=== PATIENT | male | born 1945 | race Caucasian/White ===

== ENCOUNTER 2016-10-30 10:36 | Outpatient (CLI) | payer MEDICARE, OTHER ==
--- NOTE | 2016-10-30 12:53 | XRAY Report ---
THREE VIEW LEFT SHOULDER: 10/30/2016 CLINICAL INDICATION: Pain. FINDINGS: AP, oblique, and scapular Y views of the left shoulder demonstrate mild degenerative croft es of the acromioclavicular joint. The glenohumeral joint appears unremarkable. No radiopaque foreign body is seen in the soft tissues. IMPRESSION: MILD DEGENERATIVE CHANGES OF THE ACROMIOCLAVICULAR JOINT. JOB #: [id number] EXT JOB #:[id number]
== END 2016-10-30 10:37 | disposition home or self-care (01) ==
LOC: DI.S 10:36
PROVIDERS: ATTEND Internal Medicine
DX: M19.012 Primary osteoarthritis, left shoulder (principal)

== ENCOUNTER 2018-02-19 07:47 | Outpatient (CLI) | payer MEDICARE, OTHER ==
[2018-02-19] MEDS ORDERED: GADOBUTROL 7.5 MMOL/7.5 ML VIAL ONE (07:55)
[2018-02-19] MEDS ORDERED: GADOBUTROL 7.5 MMOL/7.5 ML VIAL IVP ONE (08:15)
--- NOTE | 2018-02-19 11:13 | Ultrasound Report ---
Reason: HOMONYMOUS BILATERAL FIELD DEFECTS LEFT SIDE, VISU Procedure Date: 02/19/2018 Accession Number: [id number] / [id number] Procedure: US - Carotid Doppler Complete CPT Code: FULL RESULT: EXAM: BILATERAL CAROTID AND VERTEBRAL ARTERY DUPLEX DOPPLER ULTRASOUND: EXAM DATE: 02/19/2018 08:48 AM CLINICAL HISTORY: Homonymous bilateral field defects left side, visualized. COMPARISON: 02/19/2018 9:21 AM. TECHNIQUE: Grayscale imaging, color Doppler, and duplex spectral Doppler were used to evaluate the carotid and vertebral arteries bilaterally. Static images were obtained. FINDINGS: There is intimal thickening throughout both carotid systems with mild atherosclerotic echogenic plaque in both common carotid systems which focally reaches visually up to 50% on the right and is minimal in the left. Shadowing echogenic plaque is seen within the right carotid bulb which precludes adequate subjective evaluation. The left bulb visually contains up to 50% stenosis with atherosclerotic echogenic plaque. Both internal carotid arteries contain 50% or less focal echogenic atherosclerotic plaque. Normal antegrade flow is present in bilateral vertebral arteries. VELOCITIES (cm/sec): VELOCITIES: RIGHT CCA mid: PSV 94 cm/sec CCA dist: PSV 73 cm/sec ICA prox: PSV 66 cm/sec, EDV 16 cm/sec ICA mid: PSV 63 cm/sec, EDV 19 cm/sec ICA dist: PSV 51 cm/sec, EDV 17 cm/sec ECA: PSV 56 cm/sec Vert: PSV 49 cm/sec ICA/CCA: 0.86 LEFT CCA mid: PSV 67 cm/sec CCA dist: PSV 65 cm/sec ICA prox: PSV 73 cm/sec, EDV 20 cm/sec ICA mid: PSV 81 cm/sec, EDV 25 cm/sec ICA dist: PSV 82 cm/sec, EDV 23 cm/sec ECA: PSV 39 cm/sec Vert: PSV 48 cm/sec ICA/CCA: 1.12 ICA diameter stenosis: Right: <50% by velocity and <70% by NASCET criteria. Left: <50% by velocity and <70% by NASCET criteria. IMPRESSION: 1. No hemodynamically significant bilateral carotid artery plaquing. 2. In the right carotid artery there are no elevated carotid artery velocities to suggest hemodynamically significant stenosis. 3. In the left carotid artery there are no elevated carotid artery velocities to suggest hemodynamically significant stenosis. 4. Normal antegrade flow is present in bilateral vertebral arteries. General Recommendations: Stenosis =50% ICA - Follow-up ultrasound 6-12 months Stenosis <50% ICA - High Risk Patient with plaque - Follow-up ultrasound 1-2 years Normal Study but High Risk Patient - Follow-up ultrasound 3-5 years Management recommendations and diagnostic criteria are based on current IAC endorsed standards in Carotid Artery Stenosis: Grayscale and Doppler Ultrasound Diagnosis. Validated velocity measurements with angiographic measurements and velocity criteria are extrapolated from diameter data as defined by the Society of Radiologists in Ultrasound Consensus Conference Radiology 2003; 229;340-346. RADIA
--- NOTE | 2018-02-20 23:40 | MRI Report ---
Reason: HOMONYMOUS BILATERAL FIELD DEFECTS LEFT SIDE, VISU Procedure Date: 02/19/2018 Accession Number: [id number] / [id number] Procedure: MRI - Orbits W/WO CPT Code: FULL RESULT: EXAM: MRI BRAIN AND ORBITS WITH AND WITHOUT CONTRAST COMPARISON: None. CLINICAL HISTORY: Homonymous bilateral field defects left side, visual. TECHNIQUE: Multiplanar multisequence imaging is obtained through the brain and orbits with and without intravenous gadolinium based contrast 7.5 mL of Gadavist. High-resolution imaging was obtained through the orbits. FINDINGS: Diffusion-weighted imaging shows no acute infarct. T2 FLAIR imaging shows no masses. There are patchy areas of white matter T2 prolongation, multifocal, most concordant small vessel angiopathy per color infarcts. Small focus of right occipital parietal encephalomalacia is presumed to reflect prior infarct. High-resolution T2 fat-saturated imaging through the orbits shows no intraorbital masses. No abnormal signal within either optic nerve. Extraocular muscles are normal. No masses or signal abnormality along the course of either optic nerve. The chiasm is normal. Optic tracts are unremarkable. No unexpected findings along the course of either optic radiation. Postcontrast axial T1 fat-saturated imaging shows no abnormal enhancement of either optic nerve. Small enhancing focus, measures approximately 2 mm, in the right orbit, intraconal (1101, 9), is of uncertain etiology, appears to reflect a small vessel, it is mildly prominent. May reflect a small varix. Pituitary fossa, clivus and foramen magnum are unremarkable. Whole brain postcontrast imaging shows no abnormal parenchymal enhancement. No evidence for metastasis. IMPRESSION: No acute infarct or mass identified. 2-3 mm intraconal enhancing focus on the right is of uncertain etiology, may reflect a small varix, repeat imaging in 3-4 months is suggested. 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
== END 2018-02-19 07:48 | disposition home or self-care (01) ==
LOC: DI 07:47
PROVIDERS: ATTEND Ophthalmology
DX: H53.462 Homonymous bilateral field defects, left side (principal); H53.9 Unspecified visual disturbance; G93.9 Disorder of brain, unspecified
CPT/HCPCS: 70543; 93880; A9585

== ENCOUNTER 2020-07-03 08:38 | Outpatient (CLI) | payer MEDICARE, OTHER ==
--- NOTE | 2020-07-03 15:15 | XRAY Report ---
PROCEDURE: Thoracic Spine 2 View INDICATIONS: LOW BACK PS TECHNIQUE: 3 views of the thoracic spine were acquired. COMPARISON: None. FINDINGS: Bones: No acute fractures or dislocations. No suspicious bony lesions. 12 pairs of ribs are noted, and appear intact where visualized. Multilevel spondylitic changes of the thoracic spine most prono unced in the mid thoracic spine with associated increased thoracic kyphosis. Degenerative endplate ch anges and small endplate osteophytes are noted throughout the thoracic spine. Mild diffuse osteopenia . Soft tissues: No paravertebral stripe thickening. IMPRESSION: Thoracic spine without acute radiographic abnormalities. Multilevel thoracic spondylosis most severe in the mid thoracic spine with associated increased thora cic kyphosis. Diffuse osteopenia. Reviewed by: Denilson Ramirez MD on 07/03/2020 2:14 PM [facility] Approved by: Denilson Ramirez MD on 07/03/2020 2:14 PM [facility] Station ID: [id number]
--- NOTE | 2020-07-03 15:21 | XRAY Report ---
PROCEDURE: Lumbar Spine 2 View INDICATIONS: LOW BACK PX TECHNIQUE: 3 views of the lumbar spine were acquired. COMPARISON: None. FINDINGS: Bones: 5 oic-hie-buebejr vertebrae are present. There is normal AP bony alignment. No acute verteb ral body compression fractures. No suspicious bony lesions. Moderate multilevel lumbar spondylosis m ost pronounced from L3-4 through L5-S1. Findings are most severe at L4-5 and L5-S1 where there is dis c space loss, degenerative endplate changes and prominent endplate osteophyte formation. There is als o prominent mid and lower lumbar facet arthropathy. Soft tissues: Overlying bowel gas pattern is normal. No suspicious soft tissue calcifications. Den se vascular calcifications of the abdominal aorta are noted. IMPRESSION: Lumbar spine without acute fracture or dislocation. Moderate multilevel lumbar spondylosis most sever e at L4-5 and L5-S1 with associated moderate facet arthropathy. Reviewed by: Denilson Ramirez MD on 07/03/2020 2:19 PM [facility] Approved by: Denilson Ramirez MD on 07/03/2020 2:19 PM [facility] Station ID: [id number]
== END 2020-07-03 08:39 | disposition home or self-care (01) ==
LOC: DI.S 08:38
PROVIDERS: ATTEND Nurse Practitioner Family
DX: M47.816 Spondylosis without myelopathy or radiculopathy, lumbar region (principal); M47.814 Spondylosis without myelopathy or radiculopathy, thoracic region; M40.294 Other kyphosis, thoracic region; M85.88 Other specified disorders of bone density and structure, other site

== ENCOUNTER 2021-05-25 06:38 | Outpatient (CLI) | payer MEDICARE, OTHER ==
[2021-05-25] MEDS ORDERED: IOVERSOL 320 100 ML VIAL IVP ONE ×2 (06:58→07:45)
--- NOTE | 2021-05-25 10:51 | CT Report ---
PROCEDURE: ABDOMEN/PELVIS W/WO INDICATIONS: HEMATURIA CONTRAST: IV CONTRAST: Optiray 320 ml: 140 PO CONTRAST: *NO PO CONTRAST TECHNIQUE: Noncontrast 5 mm thick sections acquired from the diaphragms to the symphysis. 5 mm coronal and sagi ttal reformats were then performed. After the administration of oral and intravenous contrast, 5 mm thick sections acquired from the diaphragms to the symphysis. 5 mm thick coronal and sagittal reform ats were acquired. For radiation dose reduction, the following was used: automated exposure control , adjustment of mA and/or kV according to patient size. COMPARISON: None. FINDINGS: Image quality: Excellent. Lung bases: There is mild dependent atelectasis and scarring in the lung bases. Heart size is normal. Urinary system: There are 2 small nonobstructing stones in the right kidney, with the larger stone m easuring up to 0.3 cm. In the left kidney, there is a punctate nonobstructing stone in the inferior p ole. No hydronephrosis or perinephric stranding. No perinephric fat stranding. There is symmetric bi lateral renal enhancement. The opacified renal collecting systems demonstrate lobulated prominent con tours of a few papilla with possible early cleft formation, primarily within the left kidney. 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 Opacified portions of both ureters demonstrate norm al caliber. Bladder wall thickness is normal. No calcified bladder stones. Other solid organs: Liver and spleen are normal in size and enhancement. Gallbladder appears within normal limits without calcified gallstones. Biliary system is non dilated. Pancreas enhances normal ly. No adrenal nodules. Peritoneum and bowel: Bowel loops demonstrate normal wall thickness and caliber. No free fluid or a ir. Nodes and vessels: No retroperitoneal or mesenteric adenopathy by size criteria. Aorta and inferior vena cava are normal in size. Abdominal wall: No ventral hernias. Pelvis: No pathologic free pelvic fluid. No inguinal hernias or adenopathy. Bones: No suspicious bony lesions. No vertebral body compression fractures. IMPRESSION: 1. Bilateral nephrolithiasis without evidence of obstructive uropathy. 2. No discrete renal mass. 3. Opacified renal collecting systems demonstrate soft tissue fullness of a few the patella with sugg estion of possible early cleft formation, primarily within the left kidney. 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 Reviewed by: Angel Fagan MD on 05/25/2021 9:50 AM [facility] Approved by: Angel Fagan MD on 05/25/2021 9:50 AM [facility] Station ID: [id number]
== END 2021-05-25 06:39 | disposition home or self-care (01) ==
LOC: DI 06:38
PROVIDERS: ATTEND Physician Assistant
DX: R31.9 Hematuria, unspecified (principal); N20.0 Calculus of kidney; R93.422 Abnormal radiologic findings on diagnostic imaging of left kidney; R93.421 Abnormal radiologic findings on diagnostic imaging of right kidney
CPT/HCPCS: 74178; Q9967

== ENCOUNTER 2021-06-25 07:55 | Outpatient (CLI) | payer MEDICARE, OTHER ==
--- NOTE | 2021-06-25 09:18 | DEXA Report ---
PROCEDURE: Dexa Spine and/or Hip INDICATIONS: OSTEOPENIA TECHNIQUE: Dual energy x-ray absorptiometry (DXA) was performed on a [employer] System. Regions measur ed are the AP Spine, femoral neck, and if needed forearm. COMPARISON: None. FINDINGS: Lumbar Spine: Bone Mineral Density 1.305 g/cm/cm,T score 0.5, normal bone density Left Hip: Bone Mineral Density 0.780 g/cm/cm,T score -2.2, osteopenia Left Femoral Neck: Bone Mineral Density 0.744 g/cm/cm, T score -2.5, osteoporosis (T score greater or equal to -1.0: NORMAL) (T score from -1.1 to -2.4: OSTEOPENIA) (T score less than or equal to -2.5 to: OSTEOPOROSIS) Impression: OSTEOPOROSIS. Patient is at high risk for fracture. Patients with diagnosis of osteoporosis or osteopenia should have regular bone mineral density assess ment. For those eligible for Medicare, routine testing is allowed once every 2 years. Testing frequ ency can be increased for patients who have rapidly progressing disease or for those who are receivin g medical therapy to restore bone mass. Reviewed by: Denilson Ramirez MD on 06/25/2021 9:17 AM PST Approved by: Denilson Ramirez MD on 06/25/2021 9:17 AM PST Station ID: [id number]
== END 2021-06-25 07:56 | disposition home or self-care (01) ==
LOC: DI 07:55
PROVIDERS: ATTEND Physician Assistant
DX: M81.0 Age-related osteoporosis without current pathological fracture (principal)

== ENCOUNTER 2021-06-25 07:56 | Outpatient (CLI) | payer MEDICARE, OTHER ==
--- NOTE | 2021-06-25 12:56 | XRAY Report ---
PROCEDURE: Shoulder 3 View RT INDICATIONS: RIGHT SHOULDER JOINT PAIN TECHNIQUE: 3 views of the shoulder were acquired. COMPARISON: None. FINDINGS: Bones: No fractures or dislocations. No suspicious bony lesions. Visualized ribs appear intact. Soft tissues: No suspicious soft tissue calcifications. IMPRESSION: No acute fracture. No osseous lesion. If symptoms and/or clinical suspicion for patholog y continue, further assessment with repeat plain films, or advanced imaging (e.g., CT, MRI, or bone s can) is recommended for further assessment. Reviewed by: Bernardo Perez MD on 06/25/2021 11:34 AM [facility] Approved by: Bernardo Perez MD on 06/25/2021 11:34 AM [facility] Station ID: [id number]
== END 2021-06-25 07:57 | disposition home or self-care (01) ==
LOC: DI 07:56
PROVIDERS: ATTEND Physician Assistant
DX: M25.511 Pain in right shoulder (principal); M81.0 Age-related osteoporosis without current pathological fracture

== ENCOUNTER 2021-06-26 15:05 | Outpatient (CLI) | payer MEDICARE, OTHER ==
[2021-06-26 20:14] LABS: BASOPHILS # (AUTO) 0.1 10^3/uL (0.0-0.1); BASOPHILS % (AUTO) 0.9 %; EOSINOPHILS # (AUTO) 0.5 10^3/uL (0.0-0.7); EOSINOPHILS % (AUTO) 6.5 %; HCT - HEMATOCRIT 38.2 % (42.0-52.0); HGB - HEMOGLOBIN 13.3 g/dL (14.0-18.0); LYMPHOCYTES # (AUTO) 2.8 10^3/uL (1.5-3.5); LYMPHOCYTES % (AUTO) 36.3 %; MEAN CORPUSCULAR HEMOGLOBIN 33.2 pg (27.0-31.0); MEAN CORPUSCULAR HGB CONC 34.8 g/dL (32.0-36.0); MEAN CORPUSCULAR VOLUME 95.3 fL (80.0-94.0); MEAN PLATELET VOLUME 10.4 fL (7.4-11.4); MONOCYTES # (AUTO) 0.8 10^3/uL (0.0-1.0); NEUTROPHILS # (AUTO) 3.5 10^3/uL (1.5-6.6); NEUTROPHILS % (AUTO) 45.2 %; PLT - PLATELET COUNT 274 10^3/uL (130-450); RED BLOOD COUNT 4.01 10^6/uL (4.70-6.10); RED CELL DISTRIBUTION WIDTH 13.1 % (12.0-15.0); WHITE BLOOD COUNT 7.6 x10^3/uL (4.8-10.8)
[2021-06-26 20:32] LABS: ALBUMIN 3.9 g/dL (3.2-5.5); CALCIUM 9.1 mg/dL (8.5-10.3); CREATININE 0.9 mg/dL (0.6-1.2); POTASSIUM 4.4 mmol/L (3.5-5.0); URIC ACID 6.2 mg/dL (2.6-7.2)
[2021-06-28 11:57] LABS: HEPATITIS C ANTIBODY NON-REACTIVE (NON-REACTIVE)
[2021-06-28 13:31] LABS: HIV AG/AB 4TH GEN NON-REACTIVE (NON-REACTIVE)
[2021-06-29 09:42] LABS: NIL 0.03 IU/mL
[2021-06-29 12:11] LABS: COMPLEMENT COMPONENT C3C 84 mg/dL (82-185); COMPLEMENT COMPONENT C4C 24 mg/dL (15-53)
[2021-06-30 00:11] LABS: ANA SCREEN POSITIVE (NEGATIVE)
[2021-07-02 13:08] LABS: KAPPA/LAMBDA LC FREE RATIO 1.37 (0.26-1.65)
[2021-07-02 22:07] LABS: ANCA SCREEN NEGATIVE (NEGATIVE)
[2021-07-03 00:53] LABS: ANGIOTENSIN-1-CONVERTING ENZYM 19 U/L (9-67)
== END 2021-06-26 15:06 | disposition home or self-care (01) ==
LOC: LAB.S 15:05
PROVIDERS: ATTEND Internal Medicine Nephrology
DX: R31.9 Hematuria, unspecified (principal); N17.2 Acute kidney failure with medullary necrosis; N18.2 Chronic kidney disease, stage 2 (mild)
CPT/HCPCS: 36415; 80069; 82164; 83520; 83883; 83970; 84155; 84165; 84550; 85025; 86021; 86038; 86160; 86334; 86480; 86803; G0475; 81599; 87389

== ENCOUNTER 2021-07-18 07:51 | Outpatient (CLI) | payer MEDICARE, OTHER ==
--- NOTE | 2021-07-18 16:44 | MRI Report ---
PROCEDURE: Shoulder RT W/O INDICATIONS: RIGHT SHOULDER PAIN TECHNIQUE: Noncontrast oblique coronal T2 fast spin echo with fat saturation, oblique sagittal T1 spin echo and T2 fast spin echo with fat saturation, axial T1 spin echo and T2 fast spin echo with fat saturation t hrough the shoulder. COMPARISON: None. FINDINGS: Image quality: Excellent. Rotator cuff: Tendinosis and low to moderate grade articular and bursal surface partial-thickness tea r involving distal supraspinatus at its insertion on humeral head is seen extending to musculotendino us junction. Full-thickness perforation involving anterior fibers of distal supraspinatus at its inse rtion on humeral head is noted with up to 8 mm medial retraction of torn tendon fibers and fluid-fill ed gap measures 8 mm in AP dimension. Distal infraspinatus and subscapularis tendinosis is seen. No s ignificant rotator cuff muscle atrophy on sagittal images. Bones and bursae: No bone marrow contusions or fractures. Moderate acromioclavicular joint and gleno humeral joint osteoarthritic changes are noted. Large amount of subacromial subdeltoid bursal fluid i s seen, no gross loose bodies. Capsule and soft tissues: There is subtle signal abnormality and contour irregularity involving super ior anterior labrum at 12 to 1:00 position. The long head of the biceps tendinosis and low to moderat e grade intrasubstance partial thickness tear is seen. The rotator interval appears normal, without f ibrosis. The coracohumeral ligament is normal in thickness. IMPRESSION: 1. Tendinosis and low to moderate grade articular and bursal surface partial-thickness tear involving distal supraspinatus extending to musculotendinous junction with full-thickness perforation involvin g anterior fibers of distal supraspinatus at its insertion on humeral head and up to 8 mm medial retr action of torn tendon fibers. Distal infraspinatus and subscapularis tendinosis. No muscle atrophy. 2. Large subacromial subdeltoid bursal fluid. No gross loose bodies. Moderate acromioclavicular joint joint osteoarthritis. No fracture or dislocation. 3. Suggestion of subtle superior anterior labral tear at 12 to 1:00 position. 4. Tendinosis and low to moderate grade intrasubstance partial thickness tear involving proximal intr a-articular portion of long head of biceps. Reviewed by: Roberto Soliman MD on 07/18/2021 4:43 PM PST Approved by: Roberto Soliman MD on 07/18/2021 4:43 PM PST Station ID: [id number]
== END 2021-07-18 07:52 | disposition home or self-care (01) ==
LOC: DI 07:51
PROVIDERS: ATTEND Physician Assistant
DX: S46.021A Laceration of muscle(s) and tendon(s) of the rotator cuff of right shoulder, initial encounter (principal); S46.121A Laceration of muscle, fascia and tendon of long head of biceps, right arm, initial encounter; M19.011 Primary osteoarthritis, right shoulder; M75.51 Bursitis of right shoulder

== ENCOUNTER 2021-12-24 08:26 | Outpatient (CLI) | payer MEDICARE, OTHER ==
[2021-12-24 08:41] LABS: BASOPHILS % (AUTO) 0.6 %; EOSINOPHILS % (AUTO) 0.6 %; LYMPHOCYTES % (AUTO) 61.7 %; MEAN CORPUSCULAR HEMOGLOBIN 32.8 pg (27.0-31.0); MEAN CORPUSCULAR HGB CONC 35.3 g/dL (32.0-36.0); MEAN CORPUSCULAR VOLUME 92.9 fL (80.0-94.0); MEAN PLATELET VOLUME 8.7 fL (7.4-11.4); MONOCYTES % (AUTO) 0.8 %; NEUTROPHILS % (AUTO) 36.3 %; PLT - PLATELET COUNT 74 10^3/uL (130-450); RED BLOOD COUNT 3.66 10^6/uL (4.70-6.10); RED CELL DISTRIBUTION WIDTH 12.7 % (12.0-15.0); WHITE BLOOD COUNT 3.6 x10^3/uL (4.8-10.8)
[2021-12-24 08:45] LABS: SLIDE REVIEW? Indicated
[2021-12-24 08:46] LABS: ABNORMAL LYMPHS % (MANUAL) 0 %; BAND NEUTROPHILS % (MANUAL) 0 %
[2021-12-24 08:58] LABS: ALBUMIN 3.8 g/dL (3.2-5.5); ALBUMIN/GLOBULIN RATIO 1.5 (1.0-2.2); BILIRUBIN,TOTAL 0.9 mg/dL (0.2-1.0); CALCIUM 8.9 mg/dL (8.5-10.3); CREATININE 0.7 mg/dL (0.6-1.2); POTASSIUM 4.3 mmol/L (3.5-5.0); TOTAL PROTEIN 6.4 g/dL (6.7-8.2)
[2021-12-24 09:12] LABS: LYMPHOCYTES # (MANUAL) 2.3 10^3/uL (1.5-3.5); LYMPHOCYTES % (MANUAL) 36 %; NEUTROPHILS # (MANUAL) 1.3 10^3/uL (1.5-6.6); REACTIVE LYMPHS % (MANUAL) 28 %
[2021-12-24 09:13] LABS: DIFFERENTIAL COMMENT MANUAL DIFFERENTIAL
== END 2021-12-24 08:27 | disposition home or self-care (01) ==
LOC: LAB 08:26
PROVIDERS: ATTEND Internal Medicine
DX: C67.9 Malignant neoplasm of bladder, unspecified (principal)
CPT/HCPCS: 36415; 80053; 85025

== ENCOUNTER 2022-01-14 08:03 | Outpatient (CLI) | payer MEDICARE, OTHER ==
[2022-01-14 08:27] LABS: BASOPHILS % (AUTO) 0.5 %; EOSINOPHILS % (AUTO) 0.2 %; HCT - HEMATOCRIT 32.6 % (42.0-52.0); HGB - HEMOGLOBIN 11.1 g/dL (14.0-18.0); LYMPHOCYTES # (AUTO) 2.2 10^3/uL (1.5-3.5); MEAN CORPUSCULAR HEMOGLOBIN 32.3 pg (27.0-31.0); MEAN CORPUSCULAR VOLUME 94.8 fL (80.0-94.0); MEAN PLATELET VOLUME 8.8 fL (7.4-11.4); MONOCYTES # (AUTO) 1.1 10^3/uL (0.0-1.0); MONOCYTES % (AUTO) 17.9 %; NEUTROPHILS # (AUTO) 2.7 10^3/uL (1.5-6.6); NEUTROPHILS % (AUTO) 44.1 %; PLT - PLATELET COUNT 192 10^3/uL (130-450); RED BLOOD COUNT 3.44 10^6/uL (4.70-6.10); RED CELL DISTRIBUTION WIDTH 14.6 % (12.0-15.0)
[2022-01-14 08:36] LABS: ALBUMIN 3.7 g/dL (3.2-5.5); ALBUMIN/GLOBULIN RATIO 1.4 (1.0-2.2); BILIRUBIN,TOTAL 0.6 mg/dL (0.2-1.0); CALCIUM 9.1 mg/dL (8.5-10.3); CREATININE 0.8 mg/dL (0.6-1.2); POTASSIUM 4.5 mmol/L (3.5-5.0); TOTAL PROTEIN 6.3 g/dL (6.7-8.2)
== END 2022-01-14 08:04 | disposition home or self-care (01) ==
LOC: LAB 08:03
PROVIDERS: ATTEND Internal Medicine
DX: C67.9 Malignant neoplasm of bladder, unspecified (principal)
CPT/HCPCS: 36415; 80053; 85025

== ENCOUNTER 2022-01-21 07:57 | Outpatient (CLI) | payer MEDICARE, OTHER ==
[2022-01-21 08:13] LABS: BASOPHILS % (AUTO) 0.1 %; EOSINOPHILS % (AUTO) 0.1 %; HCT - HEMATOCRIT 31.8 % (42.0-52.0); HGB - HEMOGLOBIN 11.1 g/dL (14.0-18.0); LYMPHOCYTES % (AUTO) 7.9 %; MEAN CORPUSCULAR HGB CONC 34.9 g/dL (32.0-36.0); MEAN CORPUSCULAR VOLUME 94.6 fL (80.0-94.0); MEAN PLATELET VOLUME 8.3 fL (7.4-11.4); MONOCYTES % (AUTO) 9.4 %; NEUTROPHILS % (AUTO) 77.5 %; PLT - PLATELET COUNT 191 10^3/uL (130-450); RED BLOOD COUNT 3.36 10^6/uL (4.70-6.10); RED CELL DISTRIBUTION WIDTH 14.6 % (12.0-15.0)
[2022-01-21 08:20] LABS: ALBUMIN 3.7 g/dL (3.2-5.5); ALBUMIN/GLOBULIN RATIO 1.3 (1.0-2.2); BILIRUBIN,TOTAL 0.7 mg/dL (0.2-1.0); CALCIUM 9.3 mg/dL (8.5-10.3); CREATININE 0.9 mg/dL (0.6-1.2); POTASSIUM 4.7 mmol/L (3.5-5.0); TOTAL PROTEIN 6.5 g/dL (6.7-8.2)
[2022-01-21 08:23] LABS: SLIDE REVIEW? Indicated
[2022-01-21 08:24] LABS: ABNORMAL LYMPHS % (MANUAL) 0 %
[2022-01-21 08:42] LABS: BAND NEUTROPHILS % (MANUAL) 30 %; LYMPHOCYTES # (MANUAL) 6.9 10^3/uL (1.5-3.5); LYMPHOCYTES % (MANUAL) 4 %; MONOCYTES # (MANUAL) 3.4 10^3/uL (0.0-1.0); NEUTROPHILS # (MANUAL) 46.4 10^3/uL (1.5-6.6); REACTIVE LYMPHS % (MANUAL) 8 %
[2022-01-21 08:44] LABS: DIFFERENTIAL COMMENT MANUAL DIFFERENTIAL
[2022-01-21 08:49] LABS: WHITE BLOOD COUNT 57.3 x10^3/uL (4.8-10.8)
[2022-01-21 14:55] LABS: BLAST CELLS % (MANUAL) 1 %
== END 2022-01-21 07:58 | disposition home or self-care (01) ==
LOC: LAB 07:57
PROVIDERS: ATTEND Internal Medicine
DX: C67.9 Malignant neoplasm of bladder, unspecified (principal)
CPT/HCPCS: 36415; 80053; 85025

== ENCOUNTER 2022-02-18 08:32 | Outpatient (CLI) | payer MEDICARE, OTHER ==
[2022-02-18 08:43] LABS: BASOPHILS % (AUTO) 0.9 %; EOSINOPHILS % (AUTO) 1.3 %; HCT - HEMATOCRIT 26.8 % (42.0-52.0); HGB - HEMOGLOBIN 9.4 g/dL (14.0-18.0); LYMPHOCYTES # (AUTO) 1.6 10^3/uL (1.5-3.5); LYMPHOCYTES % (AUTO) 50.3 %; MEAN CORPUSCULAR HEMOGLOBIN 33.8 pg (27.0-31.0); MEAN CORPUSCULAR HGB CONC 35.1 g/dL (32.0-36.0); MEAN CORPUSCULAR VOLUME 96.4 fL (80.0-94.0); MEAN PLATELET VOLUME 8.9 fL (7.4-11.4); MONOCYTES # (AUTO) 0.6 10^3/uL (0.0-1.0); NEUTROPHILS # (AUTO) 0.9 10^3/uL (1.5-6.6); NEUTROPHILS % (AUTO) 27.5 %; PLT - PLATELET COUNT 195 10^3/uL (130-450); RED BLOOD COUNT 2.78 10^6/uL (4.70-6.10); RED CELL DISTRIBUTION WIDTH 15.9 % (12.0-15.0); WHITE BLOOD COUNT 3.2 x10^3/uL (4.8-10.8)
[2022-02-18 09:02] LABS: ALBUMIN 3.8 g/dL (3.2-5.5); ALBUMIN/GLOBULIN RATIO 1.6 (1.0-2.2); BILIRUBIN,TOTAL 0.7 mg/dL (0.2-1.0); CALCIUM 8.8 mg/dL (8.5-10.3); CREATININE 0.8 mg/dL (0.6-1.2); POTASSIUM 4.2 mmol/L (3.5-5.0); TOTAL PROTEIN 6.2 g/dL (6.7-8.2)
== END 2022-02-18 08:33 | disposition home or self-care (01) ==
LOC: LAB 08:32
PROVIDERS: ATTEND Internal Medicine
DX: C67.9 Malignant neoplasm of bladder, unspecified (principal)
CPT/HCPCS: 36415; 80053; 85025

== ENCOUNTER 2022-02-25 08:20 | Outpatient (CLI) | payer MEDICARE, OTHER ==
[2022-02-25 08:38] LABS: BASOPHILS # (AUTO) 0.1 10^3/uL (0.0-0.1); BASOPHILS % (AUTO) 1.2 %; EOSINOPHILS # (AUTO) 0.2 10^3/uL (0.0-0.7); EOSINOPHILS % (AUTO) 3.2 %; HCT - HEMATOCRIT 31.2 % (42.0-52.0); HGB - HEMOGLOBIN 10.6 g/dL (14.0-18.0); LYMPHOCYTES # (AUTO) 2.2 10^3/uL (1.5-3.5); LYMPHOCYTES % (AUTO) 35.9 %; MEAN CORPUSCULAR HEMOGLOBIN 33.3 pg (27.0-31.0); MEAN CORPUSCULAR VOLUME 98.1 fL (80.0-94.0); MEAN PLATELET VOLUME 8.4 fL (7.4-11.4); MONOCYTES # (AUTO) 1.3 10^3/uL (0.0-1.0); MONOCYTES % (AUTO) 21.8 %; NEUTROPHILS # (AUTO) 2.2 10^3/uL (1.5-6.6); NEUTROPHILS % (AUTO) 37.2 %; PLT - PLATELET COUNT 364 10^3/uL (130-450); RED BLOOD COUNT 3.18 10^6/uL (4.70-6.10); RED CELL DISTRIBUTION WIDTH 17.1 % (12.0-15.0)
== END 2022-02-25 08:21 | disposition home or self-care (01) ==
LOC: LAB 08:20
PROVIDERS: ATTEND Internal Medicine
DX: C67.9 Malignant neoplasm of bladder, unspecified (principal)
CPT/HCPCS: 36415; 85025

== ENCOUNTER 2022-03-04 08:50 | Outpatient (CLI) | payer MEDICARE, OTHER ==
[2022-03-04 09:14] LABS: BASOPHILS % (AUTO) 0.2 %; EOSINOPHILS % (AUTO) 0.1 %; HCT - HEMATOCRIT 30.8 % (42.0-52.0); HGB - HEMOGLOBIN 10.8 g/dL (14.0-18.0); LYMPHOCYTES % (AUTO) 6.9 %; MEAN CORPUSCULAR HEMOGLOBIN 33.9 pg (27.0-31.0); MEAN CORPUSCULAR HGB CONC 35.1 g/dL (32.0-36.0); MEAN CORPUSCULAR VOLUME 96.6 fL (80.0-94.0); MEAN PLATELET VOLUME 8.6 fL (7.4-11.4); MONOCYTES % (AUTO) 7.2 %; NEUTROPHILS % (AUTO) 82.4 %; PLT - PLATELET COUNT 155 10^3/uL (130-450); RED BLOOD COUNT 3.19 10^6/uL (4.70-6.10); RED CELL DISTRIBUTION WIDTH 16.1 % (12.0-15.0)
[2022-03-04 09:22] LABS: SLIDE REVIEW? Indicated; WHITE BLOOD COUNT 52.6 x10^3/uL (4.8-10.8)
[2022-03-04 09:24] LABS: ABNORMAL LYMPHS % (MANUAL) 0 %
[2022-03-04 09:29] LABS: ALBUMIN 4.2 g/dL (3.2-5.5); ALBUMIN/GLOBULIN RATIO 1.9 (1.0-2.2); BILIRUBIN,TOTAL 0.6 mg/dL (0.2-1.0); CALCIUM 9.2 mg/dL (8.5-10.3); CREATININE 0.8 mg/dL (0.6-1.2); POTASSIUM 4.7 mmol/L (3.5-5.0); TOTAL PROTEIN 6.4 g/dL (6.7-8.2)
[2022-03-04 09:44] LABS: BAND NEUTROPHILS % (MANUAL) 9 %; LYMPHOCYTES # (MANUAL) 8.4 10^3/uL (1.5-3.5); LYMPHOCYTES % (MANUAL) 16 %; METAMYELOCYTES % (MANUAL) 2 %; MONOCYTES # (MANUAL) 1.6 10^3/uL (0.0-1.0); NEUTROPHILS # (MANUAL) 41.6 10^3/uL (1.5-6.6)
[2022-03-04 09:55] LABS: RBC MORPHOLOGY (MULTIPLE) 2+ ANISOCYTOSIS (NORMAL)
[2022-03-04 09:56] LABS: DIFFERENTIAL COMMENT MANUAL DIFFERENTIAL; PLATELET ESTIMATE, MANUAL NORMAL (130-450,000) (NORMAL); PLATELET MORPHOLOGY NORMAL APPEARANCE (NORMAL); WBC MORPHOLOGY (MULTIPLE) 2+ TOXIC GRANULATION (NORMAL)
== END 2022-03-04 08:51 | disposition home or self-care (01) ==
LOC: LAB 08:50
PROVIDERS: ATTEND Internal Medicine
DX: C67.9 Malignant neoplasm of bladder, unspecified (principal)
CPT/HCPCS: 36415; 80053; 85025

== ENCOUNTER 2022-03-18 08:03 | Outpatient (CLI) | payer MEDICARE, OTHER ==
[2022-03-18 08:23] LABS: BASOPHILS # (AUTO) 0.1 10^3/uL (0.0-0.1); BASOPHILS % (AUTO) 0.9 %; EOSINOPHILS # (AUTO) 0.1 10^3/uL (0.0-0.7); HCT - HEMATOCRIT 28.3 % (42.0-52.0); HGB - HEMOGLOBIN 9.9 g/dL (14.0-18.0); LYMPHOCYTES # (AUTO) 1.8 10^3/uL (1.5-3.5); LYMPHOCYTES % (AUTO) 31.9 %; MEAN CORPUSCULAR HEMOGLOBIN 33.9 pg (27.0-31.0); MEAN CORPUSCULAR VOLUME 96.9 fL (80.0-94.0); MEAN PLATELET VOLUME 9.1 fL (7.4-11.4); MONOCYTES # (AUTO) 0.9 10^3/uL (0.0-1.0); MONOCYTES % (AUTO) 16.2 %; NEUTROPHILS # (AUTO) 2.9 10^3/uL (1.5-6.6); NEUTROPHILS % (AUTO) 49.8 %; PLT - PLATELET COUNT 194 10^3/uL (130-450); RED BLOOD COUNT 2.92 10^6/uL (4.70-6.10); RED CELL DISTRIBUTION WIDTH 15.6 % (12.0-15.0); WHITE BLOOD COUNT 5.7 x10^3/uL (4.8-10.8)
[2022-03-18 08:31] LABS: ALBUMIN/GLOBULIN RATIO 1.5 (1.0-2.2); CALCIUM 9.1 mg/dL (8.5-10.3); CREATININE 0.8 mg/dL (0.6-1.2); POTASSIUM 4.2 mmol/L (3.5-5.0); TOTAL PROTEIN 6.6 g/dL (6.7-8.2)
== END 2022-03-18 08:04 | disposition home or self-care (01) ==
LOC: LAB 08:03
PROVIDERS: ATTEND Internal Medicine
DX: C67.9 Malignant neoplasm of bladder, unspecified (principal)
CPT/HCPCS: 36415; 80053; 85025

== ENCOUNTER 2022-03-25 10:00 | Outpatient (CLI) | payer MEDICARE, OTHER ==
[2022-03-25 10:16] LABS: BASOPHILS % (AUTO) 0.1 %; EOSINOPHILS % (AUTO) 0.2 %; HCT - HEMATOCRIT 28.9 % (42.0-52.0); HGB - HEMOGLOBIN 10.1 g/dL (14.0-18.0); LYMPHOCYTES % (AUTO) 7.8 %; MEAN CORPUSCULAR HEMOGLOBIN 34.9 pg (27.0-31.0); MEAN CORPUSCULAR HGB CONC 34.9 g/dL (32.0-36.0); MEAN PLATELET VOLUME 8.2 fL (7.4-11.4); NEUTROPHILS % (AUTO) 80.5 %; PLT - PLATELET COUNT 286 10^3/uL (130-450); RED BLOOD COUNT 2.89 10^6/uL (4.70-6.10); RED CELL DISTRIBUTION WIDTH 15.8 % (12.0-15.0)
[2022-03-25 10:25] LABS: ALBUMIN 4.1 g/dL (3.2-5.5); ALBUMIN/GLOBULIN RATIO 1.6 (1.0-2.2); BILIRUBIN,TOTAL 0.3 mg/dL (0.2-1.0); CREATININE 0.8 mg/dL (0.6-1.2); POTASSIUM 4.2 mmol/L (3.5-5.0); TOTAL PROTEIN 6.6 g/dL (6.7-8.2)
[2022-03-25 10:47] LABS: SLIDE REVIEW? Indicated; WHITE BLOOD COUNT 59.6 x10^3/uL (4.8-10.8)
[2022-03-25 10:48] LABS: ABNORMAL LYMPHS % (MANUAL) 0 %
[2022-03-25 11:47] LABS: BAND NEUTROPHILS % (MANUAL) 8 %; LYMPHOCYTES % (MANUAL) 10 %; MONOCYTES # (MANUAL) 3.6 10^3/uL (0.0-1.0); NEUTROPHILS # (MANUAL) 50.1 10^3/uL (1.5-6.6)
[2022-03-25 11:57] LABS: DIFFERENTIAL COMMENT MANUAL DIFFERENTIAL; PLATELET ESTIMATE, MANUAL NORMAL (130-450,000) (NORMAL); PLATELET MORPHOLOGY NORMAL APPEARANCE (NORMAL); WBC MORPHOLOGY (MULTIPLE) 2+ TOXIC GRANULATION (NORMAL)
== END 2022-03-25 10:01 | disposition home or self-care (01) ==
LOC: LAB 10:00
PROVIDERS: ATTEND Internal Medicine
DX: C67.9 Malignant neoplasm of bladder, unspecified (principal)
CPT/HCPCS: 36415; 80053; 85025

== ENCOUNTER 2022-05-28 08:23 | Outpatient (CLI) | payer MEDICARE, OTHER ==
[2022-05-28 08:45] LABS: BASOPHILS # (AUTO) 0.1 10^3/uL (0.0-0.1); EOSINOPHILS # (AUTO) 0.3 10^3/uL (0.0-0.7); EOSINOPHILS % (AUTO) 5.3 %; HCT - HEMATOCRIT 36.8 % (42.0-52.0); HGB - HEMOGLOBIN 12.7 g/dL (14.0-18.0); LYMPHOCYTES # (AUTO) 2.1 10^3/uL (1.5-3.5); MEAN CORPUSCULAR HGB CONC 34.5 g/dL (32.0-36.0); MEAN CORPUSCULAR VOLUME 95.6 fL (80.0-94.0); MEAN PLATELET VOLUME 8.4 fL (7.4-11.4); MONOCYTES # (AUTO) 0.6 10^3/uL (0.0-1.0); NEUTROPHILS # (AUTO) 3.1 10^3/uL (1.5-6.6); NEUTROPHILS % (AUTO) 49.5 %; PLT - PLATELET COUNT 205 10^3/uL (130-450); RED BLOOD COUNT 3.85 10^6/uL (4.70-6.10); RED CELL DISTRIBUTION WIDTH 12.9 % (12.0-15.0); WHITE BLOOD COUNT 6.2 x10^3/uL (4.8-10.8)
[2022-05-28 09:05] LABS: ALBUMIN 3.9 g/dL (3.2-5.5); BILIRUBIN,DIRECT 0.2 mg/dL (0.1-0.5); BILIRUBIN,TOTAL 1.1 mg/dL (0.2-1.0); CALCIUM 8.8 mg/dL (8.5-10.3); CREATININE 0.8 mg/dL (0.6-1.2); TOTAL PROTEIN 6.4 g/dL (6.7-8.2)
[2022-05-28 09:17] LABS: CORTISOL 12.2 ug/dL
[2022-05-28 09:20] LABS: THYROID STIMULATING HORMONE 0.45 uIU/mL (0.34-5.60)
[2022-05-28 09:24] LABS: FREE T4 (FREE THYROXINE) 1.05 ng/dL (0.58-1.64)
== END 2022-05-28 08:24 | disposition home or self-care (01) ==
LOC: LAB 08:23
PROVIDERS: ATTEND Internal Medicine
DX: C67.9 Malignant neoplasm of bladder, unspecified (principal)
CPT/HCPCS: 36415; 80048; 80076; 82533; 83615; 84439; 84443; 85025

== ENCOUNTER 2022-06-25 08:38 | Outpatient (CLI) | payer MEDICARE, OTHER ==
[2022-06-25 09:00] LABS: BASOPHILS % (AUTO) 0.6 %; EOSINOPHILS # (AUTO) 0.3 10^3/uL (0.0-0.7); HCT - HEMATOCRIT 38.1 % (42.0-52.0); HGB - HEMOGLOBIN 12.9 g/dL (14.0-18.0); LYMPHOCYTES # (AUTO) 2.2 10^3/uL (1.5-3.5); LYMPHOCYTES % (AUTO) 35.7 %; MEAN CORPUSCULAR HEMOGLOBIN 31.8 pg (27.0-31.0); MEAN CORPUSCULAR HGB CONC 33.9 g/dL (32.0-36.0); MEAN CORPUSCULAR VOLUME 93.8 fL (80.0-94.0); MEAN PLATELET VOLUME 8.7 fL (7.4-11.4); MONOCYTES # (AUTO) 0.7 10^3/uL (0.0-1.0); MONOCYTES % (AUTO) 11.9 %; NEUTROPHILS # (AUTO) 2.9 10^3/uL (1.5-6.6); NEUTROPHILS % (AUTO) 46.6 %; PLT - PLATELET COUNT 224 10^3/uL (130-450); RED BLOOD COUNT 4.06 10^6/uL (4.70-6.10); RED CELL DISTRIBUTION WIDTH 12.9 % (12.0-15.0); WHITE BLOOD COUNT 6.2 x10^3/uL (4.8-10.8)
[2022-06-25 09:20] LABS: ALBUMIN 3.8 g/dL (3.2-5.5); BILIRUBIN,DIRECT 0.2 mg/dL (0.1-0.5); BILIRUBIN,TOTAL 1.3 mg/dL (0.2-1.0); CALCIUM 8.7 mg/dL (8.5-10.3); CREATININE 0.9 mg/dL (0.6-1.2); POTASSIUM 4.3 mmol/L (3.5-5.0); TOTAL PROTEIN 6.6 g/dL (6.7-8.2)
[2022-06-25 09:25] LABS: CORTISOL 6.2 ug/dL
[2022-06-25 09:29] LABS: THYROID STIMULATING HORMONE 0.65 uIU/mL (0.34-5.60)
[2022-06-25 09:32] LABS: FREE T4 (FREE THYROXINE) 0.94 ng/dL (0.58-1.64)
== END 2022-06-25 08:39 | disposition home or self-care (01) ==
LOC: LAB 08:38
PROVIDERS: ATTEND Internal Medicine
DX: C67.9 Malignant neoplasm of bladder, unspecified (principal)
CPT/HCPCS: 36415; 80048; 80076; 82533; 83615; 84439; 84443; 85025

== ENCOUNTER 2022-07-09 08:36 | Outpatient (CLI) | payer MEDICARE, OTHER ==
[2022-07-09 08:48] LABS: BASOPHILS # (AUTO) 0.1 10^3/uL (0.0-0.1); BASOPHILS % (AUTO) 0.7 %; EOSINOPHILS # (AUTO) 0.4 10^3/uL (0.0-0.7); EOSINOPHILS % (AUTO) 5.2 %; HCT - HEMATOCRIT 39.2 % (42.0-52.0); HGB - HEMOGLOBIN 13.3 g/dL (14.0-18.0); LYMPHOCYTES # (AUTO) 2.5 10^3/uL (1.5-3.5); LYMPHOCYTES % (AUTO) 36.4 %; MEAN CORPUSCULAR HEMOGLOBIN 31.7 pg (27.0-31.0); MEAN CORPUSCULAR HGB CONC 33.9 g/dL (32.0-36.0); MEAN CORPUSCULAR VOLUME 93.6 fL (80.0-94.0); MEAN PLATELET VOLUME 8.3 fL (7.4-11.4); MONOCYTES % (AUTO) 14.1 %; NEUTROPHILS # (AUTO) 2.9 10^3/uL (1.5-6.6); NEUTROPHILS % (AUTO) 43.5 %; PLT - PLATELET COUNT 263 10^3/uL (130-450); RED BLOOD COUNT 4.19 10^6/uL (4.70-6.10); RED CELL DISTRIBUTION WIDTH 13.5 % (12.0-15.0); WHITE BLOOD COUNT 6.7 x10^3/uL (4.8-10.8)
[2022-07-09 09:03] LABS: ALBUMIN 3.8 g/dL (3.2-5.5); BILIRUBIN,DIRECT 0.2 mg/dL (0.1-0.5); BILIRUBIN,TOTAL 1.1 mg/dL (0.2-1.0); CALCIUM 8.7 mg/dL (8.5-10.3); CREATININE 0.7 mg/dL (0.6-1.2); POTASSIUM 4.3 mmol/L (3.5-5.0); TOTAL PROTEIN 6.7 g/dL (6.7-8.2)
== END 2022-07-09 08:37 | disposition home or self-care (01) ==
LOC: LAB 08:36
PROVIDERS: ATTEND Internal Medicine
DX: C67.9 Malignant neoplasm of bladder, unspecified (principal)
CPT/HCPCS: 36415; 80048; 80076; 83615; 85025

== ENCOUNTER 2022-07-23 09:05 | Outpatient (CLI) | payer MEDICARE, OTHER ==
[2022-07-23 09:20] LABS: BASOPHILS # (AUTO) 0.1 10^3/uL (0.0-0.1); BASOPHILS % (AUTO) 0.8 %; EOSINOPHILS # (AUTO) 0.4 10^3/uL (0.0-0.7); EOSINOPHILS % (AUTO) 5.6 %; HCT - HEMATOCRIT 38.7 % (42.0-52.0); HGB - HEMOGLOBIN 13.3 g/dL (14.0-18.0); LYMPHOCYTES # (AUTO) 2.5 10^3/uL (1.5-3.5); LYMPHOCYTES % (AUTO) 32.1 %; MEAN CORPUSCULAR HEMOGLOBIN 31.5 pg (27.0-31.0); MEAN CORPUSCULAR HGB CONC 34.4 g/dL (32.0-36.0); MEAN CORPUSCULAR VOLUME 91.7 fL (80.0-94.0); MEAN PLATELET VOLUME 8.5 fL (7.4-11.4); MONOCYTES % (AUTO) 12.6 %; NEUTROPHILS # (AUTO) 3.8 10^3/uL (1.5-6.6); NEUTROPHILS % (AUTO) 48.5 %; PLT - PLATELET COUNT 239 10^3/uL (130-450); RED BLOOD COUNT 4.22 10^6/uL (4.70-6.10); RED CELL DISTRIBUTION WIDTH 13.6 % (12.0-15.0); WHITE BLOOD COUNT 7.7 x10^3/uL (4.8-10.8)
[2022-07-23 09:33] LABS: BILIRUBIN,DIRECT 0.1 mg/dL (0.1-0.5); BILIRUBIN,TOTAL 1.3 mg/dL (0.2-1.0); CREATININE 0.7 mg/dL (0.6-1.2); POTASSIUM 4.3 mmol/L (3.5-5.0); TOTAL PROTEIN 6.8 g/dL (6.7-8.2)
== END 2022-07-23 09:06 | disposition home or self-care (01) ==
LOC: LAB 09:05
PROVIDERS: ATTEND Internal Medicine
DX: C67.9 Malignant neoplasm of bladder, unspecified (principal)
CPT/HCPCS: 36415; 80048; 80076; 83615; 85025

== ENCOUNTER 2022-08-06 08:31 | Outpatient (CLI) | payer MEDICARE, OTHER ==
[2022-08-06 08:44] LABS: BASOPHILS # (AUTO) 0.1 10^3/uL (0.0-0.1); BASOPHILS % (AUTO) 0.7 %; EOSINOPHILS # (AUTO) 0.4 10^3/uL (0.0-0.7); HCT - HEMATOCRIT 39.7 % (42.0-52.0); HGB - HEMOGLOBIN 13.6 g/dL (14.0-18.0); LYMPHOCYTES # (AUTO) 2.2 10^3/uL (1.5-3.5); LYMPHOCYTES % (AUTO) 32.6 %; MEAN CORPUSCULAR HEMOGLOBIN 31.6 pg (27.0-31.0); MEAN CORPUSCULAR HGB CONC 34.3 g/dL (32.0-36.0); MEAN CORPUSCULAR VOLUME 92.1 fL (80.0-94.0); MEAN PLATELET VOLUME 8.3 fL (7.4-11.4); MONOCYTES # (AUTO) 0.8 10^3/uL (0.0-1.0); NEUTROPHILS # (AUTO) 3.2 10^3/uL (1.5-6.6); NEUTROPHILS % (AUTO) 48.4 %; PLT - PLATELET COUNT 237 10^3/uL (130-450); RED BLOOD COUNT 4.31 10^6/uL (4.70-6.10); RED CELL DISTRIBUTION WIDTH 13.8 % (12.0-15.0); WHITE BLOOD COUNT 6.7 x10^3/uL (4.8-10.8)
[2022-08-06 09:00] LABS: ALBUMIN 3.9 g/dL (3.2-5.5); BILIRUBIN,DIRECT 0.2 mg/dL (0.1-0.5); BILIRUBIN,TOTAL 1.3 mg/dL (0.2-1.0); CALCIUM 8.7 mg/dL (8.5-10.3); CREATININE 0.8 mg/dL (0.6-1.2); POTASSIUM 4.3 mmol/L (3.5-5.0); TOTAL PROTEIN 6.5 g/dL (6.7-8.2)
== END 2022-08-06 08:32 | disposition home or self-care (01) ==
LOC: LAB 08:31
PROVIDERS: ATTEND Internal Medicine
DX: C67.9 Malignant neoplasm of bladder, unspecified (principal)
CPT/HCPCS: 36415; 80048; 80076; 83615; 85025

== ENCOUNTER 2022-08-19 07:57 | Outpatient (CLI) | payer MEDICARE, OTHER ==
[2022-08-19 15:06] LABS: BASOPHILS # (AUTO) 0.1 10^3/uL (0.0-0.1); BASOPHILS % (AUTO) 0.8 %; EOSINOPHILS # (AUTO) 0.3 10^3/uL (0.0-0.7); EOSINOPHILS % (AUTO) 4.8 %; HCT - HEMATOCRIT 39.5 % (42.0-52.0); HGB - HEMOGLOBIN 13.2 g/dL (14.0-18.0); LYMPHOCYTES # (AUTO) 2.3 10^3/uL (1.5-3.5); LYMPHOCYTES % (AUTO) 36.3 %; MEAN CORPUSCULAR HEMOGLOBIN 30.8 pg (27.0-31.0); MEAN CORPUSCULAR HGB CONC 33.4 g/dL (32.0-36.0); MEAN CORPUSCULAR VOLUME 92.1 fL (80.0-94.0); MEAN PLATELET VOLUME 8.8 fL (7.4-11.4); MONOCYTES # (AUTO) 0.8 10^3/uL (0.0-1.0); MONOCYTES % (AUTO) 12.7 %; NEUTROPHILS # (AUTO) 2.9 10^3/uL (1.5-6.6); NEUTROPHILS % (AUTO) 45.2 %; PLT - PLATELET COUNT 285 10^3/uL (130-450); RED BLOOD COUNT 4.29 10^6/uL (4.70-6.10); RED CELL DISTRIBUTION WIDTH 14.5 % (12.0-15.0); WHITE BLOOD COUNT 6.4 x10^3/uL (4.8-10.8)
[2022-08-19 15:43] LABS: ALBUMIN 3.9 g/dL (3.2-5.5); BILIRUBIN,DIRECT 0.2 mg/dL (0.1-0.5); BILIRUBIN,TOTAL 1.2 mg/dL (0.2-1.0); CREATININE 0.9 mg/dL (0.6-1.2); POTASSIUM 4.5 mmol/L (3.5-5.0); TOTAL PROTEIN 6.5 g/dL (6.7-8.2)
== END 2022-08-19 07:58 | disposition home or self-care (01) ==
LOC: LAB.S 07:57
PROVIDERS: ATTEND Internal Medicine
DX: C67.9 Malignant neoplasm of bladder, unspecified (principal)
CPT/HCPCS: 36415; 80048; 80076; 83615; 85025

== ENCOUNTER 2022-10-01 08:29 | Outpatient (CLI) | payer MEDICARE, OTHER ==
[2022-10-01 09:01] LABS: BASOPHILS # (AUTO) 0.1 10^3/uL (0.0-0.1); BASOPHILS % (AUTO) 0.8 %; EOSINOPHILS # (AUTO) 0.3 10^3/uL (0.0-0.7); EOSINOPHILS % (AUTO) 4.9 %; HCT - HEMATOCRIT 38.7 % (42.0-52.0); HGB - HEMOGLOBIN 13.4 g/dL (14.0-18.0); LYMPHOCYTES # (AUTO) 2.2 10^3/uL (1.5-3.5); LYMPHOCYTES % (AUTO) 35.6 %; MEAN CORPUSCULAR HEMOGLOBIN 32.1 pg (27.0-31.0); MEAN CORPUSCULAR HGB CONC 34.6 g/dL (32.0-36.0); MEAN CORPUSCULAR VOLUME 92.8 fL (80.0-94.0); MEAN PLATELET VOLUME 8.3 fL (7.4-11.4); MONOCYTES # (AUTO) 0.7 10^3/uL (0.0-1.0); NEUTROPHILS % (AUTO) 47.5 %; PLT - PLATELET COUNT 275 10^3/uL (130-450); RED BLOOD COUNT 4.17 10^6/uL (4.70-6.10); RED CELL DISTRIBUTION WIDTH 13.9 % (12.0-15.0); WHITE BLOOD COUNT 6.3 x10^3/uL (4.8-10.8)
[2022-10-01 09:39] LABS: BILIRUBIN,DIRECT 0.2 mg/dL (0.1-0.5); BILIRUBIN,TOTAL 0.9 mg/dL (0.2-1.0); CALCIUM 8.8 mg/dL (8.5-10.3); CREATININE 0.8 mg/dL (0.6-1.2); POTASSIUM 4.2 mmol/L (3.5-5.0); TOTAL PROTEIN 6.7 g/dL (6.7-8.2)
== END 2022-10-01 08:30 | disposition home or self-care (01) ==
LOC: LAB 08:29
PROVIDERS: ATTEND Internal Medicine
DX: C67.9 Malignant neoplasm of bladder, unspecified (principal)
CPT/HCPCS: 36415; 80048; 80076; 83615; 85025

== ENCOUNTER 2022-12-05 08:00 | Outpatient (CLI) | payer MEDICARE, OTHER ==
[2022-12-07 07:07] LABS: ADENOVIRUS F 40/41 Not Detected (Not Detected); ASTROVIRUS Not Detected (Not Detected); C DIFFICILE TOXIN A/B Not Detected (Not Detected); CAMPYLOBACTER Not Detected (Not Detected); CRYPTOSPORIDIUM Not Detected (Not Detected); CYCLOSPORA CAYETANENSIS Detected (Not Detected); ENTAMOEBA HISTOLYTICA Not Detected (Not Detected); ENTEROAGGREGATIVE E COLI Not Detected (Not Detected); ENTEROPATHOGENIC E COLI Not Detected (Not Detected); ENTEROTOXIGENIC E COLI Not Detected (Not Detected); GIARDIA LAMBLIA Not Detected (Not Detected); NOROVIRUS GI/GII Not Detected (Not Detected); PLESIOMONAS SHIGELLOIDES Not Detected (Not Detected); ROTAVIRUS A Not Detected (Not Detected); SALMONELLA Not Detected (Not Detected); SAPOVIRUS Not Detected (Not Detected); SHIGA-TOXIN-PRODUCING E COLI Not Detected (Not Detected); SHIGELLA/ENTEROINVASIVE E COLI Not Detected (Not Detected); VIBRIO Not Detected (Not Detected); VIBRIO CHOLERAE Not Detected (Not Detected); YERSINIA ENTEROCOLITICA Not Detected (Not Detected)
== END 2022-12-05 23:59 | disposition home or self-care (01) ==
LOC: LAB 08:00
PROVIDERS: ATTEND Emergency Medicine
DX: R19.7 Diarrhea, unspecified (principal)
CPT/HCPCS: 87507

== ENCOUNTER 2022-12-10 08:16 | Outpatient (CLI) | payer MEDICARE, OTHER ==
[2022-12-10 08:53] LABS: BASOPHILS % (AUTO) 0.6 %; EOSINOPHILS # (AUTO) 0.1 10^3/uL (0.0-0.7); EOSINOPHILS % (AUTO) 1.9 %; HCT - HEMATOCRIT 36.4 % (42.0-52.0); HGB - HEMOGLOBIN 12.8 g/dL (14.0-18.0); LYMPHOCYTES # (AUTO) 2.6 10^3/uL (1.5-3.5); LYMPHOCYTES % (AUTO) 38.1 %; MEAN CORPUSCULAR HEMOGLOBIN 32.3 pg (27.0-31.0); MEAN CORPUSCULAR HGB CONC 35.2 g/dL (32.0-36.0); MEAN CORPUSCULAR VOLUME 91.9 fL (80.0-94.0); MEAN PLATELET VOLUME 8.3 fL (7.4-11.4); MONOCYTES # (AUTO) 0.9 10^3/uL (0.0-1.0); MONOCYTES % (AUTO) 13.5 %; NEUTROPHILS # (AUTO) 3.1 10^3/uL (1.5-6.6); NEUTROPHILS % (AUTO) 45.8 %; PLT - PLATELET COUNT 267 10^3/uL (130-450); RED BLOOD COUNT 3.96 10^6/uL (4.70-6.10); RED CELL DISTRIBUTION WIDTH 13.6 % (12.0-15.0); WHITE BLOOD COUNT 6.8 x10^3/uL (4.8-10.8)
[2022-12-10 09:04] LABS: ALBUMIN 3.6 g/dL (3.2-5.5); ALBUMIN/GLOBULIN RATIO 1.3 (1.0-2.2); BILIRUBIN,TOTAL 0.9 mg/dL (0.2-1.0); CALCIUM 8.5 mg/dL (8.5-10.3); POTASSIUM 4.6 mmol/L (3.5-5.0); TOTAL PROTEIN 6.4 g/dL (6.7-8.2)
== END 2022-12-10 08:17 | disposition home or self-care (01) ==
LOC: LAB 08:16
PROVIDERS: ATTEND Internal Medicine
DX: C67.9 Malignant neoplasm of bladder, unspecified (principal)
CPT/HCPCS: 36415; 80053; 85025

== ENCOUNTER 2023-01-01 17:15 | Outpatient (CLI) | payer MEDICARE, OTHER | END 2023-01-01 23:59 | disposition critical access hospital (66) | LOC: EMS 17:15 | DX: R40.4 Transient alteration of awareness (principal); R42 Dizziness and giddiness; R53.1 Weakness | CPT/HCPCS: A0425; A0427 ==

== ENCOUNTER 2023-01-01 17:59 | Emergency (ER) | payer MEDICARE, OTHER ==
[2023-01-01 18:28] LABS: BASOPHILS # (AUTO) 0.1 10^3/uL (0.0-0.1); BASOPHILS % (AUTO) 0.6 %; EOSINOPHILS # (AUTO) 0.1 10^3/uL (0.0-0.7); EOSINOPHILS % (AUTO) 0.9 %; HCT - HEMATOCRIT 34.6 % (42.0-52.0); HGB - HEMOGLOBIN 11.9 g/dL (14.0-18.0); LYMPHOCYTES # (AUTO) 0.7 10^3/uL (1.5-3.5); LYMPHOCYTES % (AUTO) 7.1 %; MEAN CORPUSCULAR HEMOGLOBIN 32.2 pg (27.0-31.0); MEAN CORPUSCULAR HGB CONC 34.4 g/dL (32.0-36.0); MEAN CORPUSCULAR VOLUME 93.5 fL (80.0-94.0); MEAN PLATELET VOLUME 8.6 fL (7.4-11.4); MONOCYTES # (AUTO) 0.3 10^3/uL (0.0-1.0); MONOCYTES % (AUTO) 3.4 %; NEUTROPHILS # (AUTO) 8.4 10^3/uL (1.5-6.6); NEUTROPHILS % (AUTO) 87.7 %; PLT - PLATELET COUNT 219 10^3/uL (130-450); RED CELL DISTRIBUTION WIDTH 14.1 % (12.0-15.0); WHITE BLOOD COUNT 9.6 x10^3/uL (4.8-10.8)
[2023-01-01] MEDS ORDERED: SODIUM CHLORIDE 0.9% 1,000 ML IV STA (18:28)
--- NOTE | 2023-01-01 18:31 | ED Physician Documentation ---
PD HPI SYNCOPE - Stated complaint Stated Complaint: NEAR SYNCOPE - Chief complaint Chief Complaint: Neuro - History obtained from History obtained from: Patient, Family - History of Present Illness Timing - onset: Today Preceding symptoms: Light headed, Generalized weakness. No: Chest pain Injury occurred: No: Fell, Head injury, Neck injury, Bit tongue Pain level max: 0 Pain level now: 0 - Additional information Additional information: Patient is a 77-year-old male who presents to the emergency department after a syncopal vs near syncope event today. He has a history of prostate cancer and had a nuclear medicine scan as well as a CT scan with contrast today in [place]. He states that last time he had IV contrast for CT scan he became flushed, sweaty and nauseated. He states that on his way home he stopped and had a pint of beer. He then got home and smoked marijuana and then decided to go sit down in his car to listen to music. His came out and found him appeared to be sleeping in the car, but she could not wake him up. She states it took about a minute to wake him up. He was pale, sweaty and clammy. EMS came and found him hypotensive, gave him IV fluids and symptoms resolved. The patient states he did not eat or drink much today as he was busy with his CAT scans and nuclear medicine scans. Review of Systems Constitutional: denies: Fever, Chills Cardiac: denies: Chest pain / pressure, Palpitations Respiratory: denies: Cough GI: denies: Abdominal Pain, Vomiting, Diarrhea Musculoskeletal: denies: Neck pain, Back pain Neurologic: denies: Headache PD PAST MEDICAL HISTORY - Past Medical History Past Medical History: Yes Other Past Medical History: prostate CA - Past Surgical History Past Surgical History: Yes - Allergies Allergies/Adverse Reactions: Allergies Allergy/AdvReac Type Severity Reaction Status Date / Time No Known Drug Allergies Allergy Verified 01/01/23 18:09 - Living Situation Living Situation: reports: With family Living Arrangement: reports: At home - Social History Does the pt drink ETOH?: Yes ETOH Use: Beer Does the pt have substance abuse?: Yes Substance Use and Type: Marijuana - Family History Family history: reports: Non contributory PD ED PE NORMAL - Vitals Vital signs reviewed: Yes - General General: Alert and oriented X 3, No acute distress - HEENT HEENT: PERRL, Moist mucous membranes - Neck Neck: Supple, no meningeal sign - Cardiac Cardiac: RRR, No murmur, Strong equal pulses - Respiratory Respiratory: No respiratory distress, Clear bilaterally - Abdomen Abdomen: Soft, Non tender, Non distended - Derm Derm: Warm and dry - Extremities Extremities: No edema, No calf tenderness / cord - Neuro Neuro: Alert and oriented X 3 - Psych Psych: Normal mood, Normal affect Results - Vitals Vitals: Vital Signs - 24 hr 01/01/23 01/01/23 01/01/23 18:05 18:42 18:53 Temperature 36.8 C Heart Rate 63 58 L Heart Rate [ 57 L Sitting] Heart Rate [ 59 L Standing] Heart Rate [ 54 L Supine] Respiratory 18 15 Rate Blood Pressure 144/75 H 139/74 H Blood Pressure 142/70 H [Sitting] Blood Pressure 138/71 H [Standing] Blood Pressure 130/72 [Supine] O2 Saturation 100 99 01/01/23 19:55 Temperature Heart Rate 56 L Heart Rate [ Sitting] Heart Rate [ Standing] Heart Rate [ Supine] Respiratory 16 Rate Blood Pressure 154/78 H Blood Pressure [Sitting] Blood Pressure [Standing] Blood Pressure [Supine] O2 Saturation 99 Oxygen O2 Source Room air - EKG (time done) 1806 EKG releavant findings:: EKG personally interpreted by author of this note. Relevant findings are: Rate: Rate (enter#) (55) Rhythm: NSR Anthony: LAD (borderline) Intervals: Normal [place] QRS: Normal Ischemia: Normal ST segments - Labs Labs: Laboratory Tests 01/01/23 01/01/23 01/01/23 18:15 18:23 18:23 WBC 9.6 RBC 3.70 L Hgb 11.9 L Hct 34.6 L MCV 93.5 MCH 32.2 H MCHC 34.4 RDW 14.1 Plt Count 219 MPV 8.6 Neut # (Auto) 8.4 H Lymph # (Auto) 0.7 L Doddridge # (Auto) 0.3 Eos # (Auto) 0.1 Baso # (Auto) 0.1 Absolute Nucleated RBC 0.00 Nucleated RBC % 0.0 Sodium 129 L Potassium 4.0 Chloride 97 L Carbon Dioxide 22 Anion Gap 10.0 BUN 14 Creatinine 0.8 Estimated GFR (MDRD) 93 Glucose 89 POC Whole Bld Glucose 84 Calcium 8.3 L Total Bilirubin 3.0 H AST 30 ALT 21 Alkaline Phosphatase 40 L Troponin I High Sens Total Protein 6.3 L Albumin 3.6 Globulin 2.7 Albumin/Globulin Ratio 1.3 Lipase 38 01/01/23 18:23 WBC RBC Hgb Hct MCV MCH MCHC RDW Plt Count MPV Neut # (Auto) Lymph # (Auto) Doddridge # (Auto) Eos # (Auto) Baso # (Auto) Absolute Nucleated RBC Nucleated RBC % Sodium Potassium Chloride Carbon Dioxide Anion Gap BUN Creatinine Estimated GFR (MDRD) Glucose POC Whole Bld Glucose Calcium Total Bilirubin AST ALT Alkaline Phosphatase Troponin I High Sens 6.3 Total Protein Albumin Globulin Albumin/Globulin Ratio Lipase PD Medical Decision Making - ED course Complexity details: reviewed results, re-evaluated patient, considered differential, d/w patient ED course: 77-year-old male with a syncopal event today. Appears to be vasovagal syncope, related to hypotension. He did not eat or drink well today due to his numerous medical tests. Coupled with alcohol and marijuana, hypotensive on arrival and symptoms resolved with IV fluids. No evidence of acute coronary syndrome. No evidence of pulmonary embolism. No shortness of breath. No chest pain. Similar symptoms occurred last time he had IV contrast with a CT scan. Ambulating without difficulty here. No arrhythmias on telemetry. No significant lab abnormalities other than chronic hyponatremia. He does feel better with IV fluids. Patient counseled regarding signs and symptoms for which I believe and urgent re-evaluation would be necessary. Patient with good understanding of and agreement to plan and is comfortable going home at this time This document was made in part using voice recognition software. While efforts are made to proofread this document, sound alike and grammatical errors may occur. Departure - Departure Disposition: 01 Home, Self Care Clinical Impression: Vasovagal near-syncope, Dehydration, Hyponatremia Condition: Good Instructions: ED Dehydration, ED Near Syncope Vasovagal Follow-Up: Cesario Bal MD [Primary Care Provider] - Comments: Please follow-up with your doctor for further care. Please return if you worsen. Make sure you are drinking plenty of water at home. Your sodium levels were low today but not much lower than your normal baseline. Please return if you develop chest pain, shortness of breath or other new or worrisome symptoms. Your testing did not show any acute abnormalities today. Discharge Date/Time: 01/01/23 19:56
--- OUTSIDE RECORDS SUMMARY | 2023-01-01 18:37 | EXTERNAL MEDICAL SUMMARY RPT | Continuity of Care Document ---
Author Name Unknown Address [address] [place] [address] Phone Organization [facility] Address [address] [place] [address] Phone Care Team Providers Care Ingot Supervisor Name Role Phone Unavailable Unavailable Unavailable Jennifer Gonsales Rn Unavailable Unavailable Nurse, [facility] Unavailable Unavailab le Nurse, [facility] Unavailable Unavailab Jennifer Blackburn Rn Unavailable Unavailable Medications date description facility 2022-12-08 00:00 [facility]one [facility] [place] 2022-12-08 00:00 prednisone [facility] [place] 2022-12-08 00:00 prednisone [facility] [place] 2022-12-15 00:00 prednisone [facility] 2022-12-05 00:00 ciprofloxacin hcl [facility] 2022-12-05 00:00 ciprofloxacin hcl [facility] 2022-12-05 00:00 ciprofloxacin hcl [facility] 2022-12-05 00:00 ciprofloxacin hcl [facility] 2022-12-08 00:00 sulfamethoxazole-trimethoprim [facility] 2022-12-08 00:00 sulfamethoxazole-trimethoprim [facility] 2022-12-08 00:00 prednisolone acetate [facility] 2022-12-08 00:00 prednisolone acetate [facility] 2022-12-08 00:00 prednisolone acetate [facility] 2022-12-15 00:00 prednisolone acetate [facility] 2022-12-08 00:00 sulfamethoxazole-trimethoprim [facility] 2022-12-08 00:00 sulfamethoxazole-trimethoprim [facility] 2022-12-08 00:00 prednisolone acetate [facility] 2022-12-08 00:00 prednisolone acetate [facility] 2022-12-08 00:00 prednisolone acetate [facility] [place] 2022-12-15 00:00 prednisolone acetate [facility] 2022-12-08 00:00 prednisone [facility] 2022-12-08 00:00 [facility]nisone [facility] [place] 2022-12-08 00:00 prednisone [facility] [place] 2022-12-15 00:00 prednisone [facility] [place] 2022-12-08 00:00 prednisone [facility] [place] 2022-12-08 00:00 prednisone [facility] [place] 2022-12-08 00:00 prednisone [facility] [place] 2022-12-15 00:00 prednisone [facility] 2022-12-05 00:00 ciprofloxacin hcl [facility] 2022-12-05 00:00 ciprofloxacin hcl [facility] 2022-12-05 00:00 ciprofloxacin hcl [facility] 2022-12-05 00:00 ciprofloxacin hcl [facility] 2022-12-08 00:00 prednisone [facility] 2022-12-08 00:00 prednisone [facility] 2022-12-08 00:00 prednisone [facility] 2022-12-15 00:00 prednisone [facility] 2022-12-08 00:00 sulfamethoxazole-trimethoprim [facility] 2022-12-08 00:00 sulfamethoxazole-trimethoprim [facility] 2022-12-05 00:00 ciprofloxacin hcl [facility] 2022-12-05 00:00 ciprofloxacin hcl [facility] 2022-12-05 00:00 ciprofloxacin hcl [facility] 2022-12-05 00:00 ciprofloxacin hcl [facility] 2022-12-05 00:00 ciprofloxacin hcl [facility] 2022-12-05 00:00 ciprofloxacin hcl [facility] [place] 2022-12-05 00:00 ciprofloxacin hcl [facility] 2022-12-05 00:00 ciprofloxacin hcl [facility] [place] 2022-12-08 00:00 prednisolone acetate [facility] 2022-12-08 00:00 prednisolone acetate [facility] 2022-12-08 00:00 prednisolone acetate [facility] [place] 2022-12-15 00:00 prednisolone acetate [facility] 2022-12-08 00:00 sulfamethoxazole-trimethoprim [facility] 2022-12-08 00:00 sulfamethoxazole-trimethoprim [facility] 2022-12-08 00:00 prednisolone acetate [facility] 2022-12-08 00:00 prednisolone acetate [facility] 2022-12-08 00:00 prednisolone acetate [facility] 2022-12-15 00:00 prednisolone acetate [facility] [place] Problems date description facility 2022-12-05 00:00 Diarrhea [facility] [place] 2022-12-05 00:00 Diarrhea [facility] 2022-12-05 00:00 Diarrhea [facility] 2022-12-05 00:00 Diarrhea [facility] 2022-12-05 00:00 Diarrhea, unspecified [facility] 2022-12-05 00:00 Diarrhea, unspecified [facility] 2022-12-05 00:00 Diarrhea, unspecified [facility] [place] 2022-12-05 00:00 Diarrhea, unspecified [facility] [place] Procedures date description facility 2022-12-05 00:00 Visit Code Hold [facility] [place] 2022-12-05 00:00 Visit Code Hold [facility] [place] 2022-12-05 00:00 Visit Code Hold [facility] [place] 2022-12-05 00:00 Visit Code Hold [facility] [place] Social History date description facility 2022-12-05 00:00 Former smoker [facility] [place] 2022-12-05 00:00 Former smoker [facility] [place] 2022-12-05 00:00 Former smoker [facility] [place] 2022-12-05 00:00 Former smoker [facility] [place] Vital Signs date measurement value units 2022-12-05 00:00 BMI 23.72 kg/m2 2022-12-05 00:00 BP_diastolic 66 mmHg 2022-12-05 00:00 BP_systolic 138 mmHg 2022-12-05 00:00 heart_rate 57 /min 2022-12-05 00:00 height_metric 165.1 cm 2022-12-05 00:00 height_standard 65 in 2022-12-05 00:00 respiration_rate 16 /min 2022-12-05 00:00 weight_metric 64.41 kg 2022-12-05 00:00 weight_standard 142 lb
[2023-01-01 18:42] LABS: ALBUMIN 3.6 g/dL (3.2-5.5); ALBUMIN/GLOBULIN RATIO 1.3 (1.0-2.2); CALCIUM 8.3 mg/dL (8.5-10.3); CREATININE 0.8 mg/dL (0.6-1.2); TOTAL PROTEIN 6.3 g/dL (6.7-8.2)
[2023-01-01 19:58] VITALS: BP 154/78
== END 2023-01-01 19:56 | disposition home or self-care (01) ==
LOC: EDUNIT# → ED 17:59
DX: R55 Syncope and collapse (principal); E86.0 Dehydration; E87.1 Hypo-osmolality and hyponatremia
CPT/HCPCS: 36415; 80053; 83690; 84484; 85025; 93005; 96360; 99284

== ENCOUNTER 2023-02-16 01:54 | Emergency (ER) | payer MEDICARE, OTHER ==
--- OUTSIDE RECORDS SUMMARY | 2023-02-16 02:31 | EXTERNAL MEDICAL SUMMARY RPT | Continuity of Care Document ---
Author Name Unknown Address [address] [place] [address] Phone Organization [facility] Address [address] [place] [address] Phone Care Team Providers Care Marketing Content Coordinator Name Role Phone Unavailable Unavailable Unavailable Jennifer Gonsales Rn Unavailable Unavailable Nurse, [facility] Unavailable Unavailab le Nurse, [facility] Unavailable Unavailab Jennifer Blackburn Rn Unavailable Unavailable Medications date description facility 2022-12-08 00:00 [facility]one [facility] [place] 2022-12-08 00:00 prednisone [facility] [place] 2022-12-08 00:00 prednisone [facility] [place] 2022-12-15 00:00 prednisone [facility] [...] [facility] [place] 2022-12-15 00:00 prednisolone acetate [facility] 2022-12-08 00:00 prednisone [facility] 2022-12-08 00:00 [facility]nisone [facility] [place] 2022-12-08 00:00 prednisone [facility] [place] 2022-12-15 00:00 prednisone [facility] [place] 2022-12-08 00:00 prednisone [facility] [place] 2022-12-08 00:00 prednisone [facility] [place] 2022-12-08 00:00 prednisone [facility] [place] 2022-12-15 00:00 prednisone [facility] [place] 2022-12-05 00:00 ciprofloxacin hcl [facility] 2022-12-05 00:00 ciprofloxacin hcl [facility] [place] 2022-12-08 00:00 prednisolone acetate [facility] 2022-12-08 00:00 prednisolone acetate [facility] 2022-12-08 00:00 prednisolone acetate [facility] [place] 2022-12-15 00:00 prednisolone acetate [facility] in [...] [facility] [place] Problems date description facility 2022-12-05 00:00 Diarrhea [facility] [place] 2022-12-05 00:00 Diarrhea [facility] 2022-12-05 00:00 Diarrhea [facility] 2022-12-05 00:00 Diarrhea [facility] 2022-12-05 00:00 Diarrhea, unspecified [facility] 2022-12-05 00:00 Diarrhea, unspecified [facility] 2022-12-05 00:00 Diarrhea, unspecified [facility] [place] 2022-12-05 00:00 Diarrhea, unspecified [facility] [place] Procedures date description facility 2022-12-05 00:00 Visit Code Hold [facility] [place] 2022-12-05 00:00 Visit Code Hold [facility] [place] 2022-12-05 00:00 Visit Code Hold [facility] [place] 2022-12-05 00:00 Visit Code Hold [facility] [place] Social History date description facility 2022-12-05 00:00 Former smoker [facility] [place] 2022-12-05 00:00 Former smoker [facility] [place] 2022-12-05 00:00 Former smoker [facility] [place] 2022-12-05 00:00 Former smoker [facility] [place] Vital Signs date measurement value units 2022-12-05 00:00 BMI 23.72 kg/m2 2022-12-05 00:00 BP_diastolic 66 mmHg 2022-12-05 00:00 BP_systolic 138 mmHg 2022-12-05 00:00 heart_rate 57 /min 2022-12-05 00:00 height_metric 165.1 cm 2022-12-05 00:00 height_standard 65 in 2022-12-05 00:00 respiration_rate 16 /min 2022-12-05 00:00 weight_metric 64.41 kg 2022-12-05 00:00 weight_standard 142 lb
[2023-02-16 02:44] LABS: BILIRUBIN,URINE NEGATIVE (NEGATIVE); GLUCOSE, URINE (UA) NEGATIVE (NEGATIVE); KETONES,URINE (UA) NEGATIVE (NEGATIVE); LEUKOCYTE ESTERASE, URINE NEGATIVE (NEGATIVE); NITRITE,URINE NEGATIVE (NEGATIVE); OCCULT BLOOD,URINE SMALL (NEGATIVE); PH,URINE 7.5 PH (5.0-7.5); PROTEIN,URINE NEGATIVE (NEGATIVE); UROBILINOGEN,URINE 0.2 (NORMAL) E.U./dL (NORMAL)
[2023-02-16 02:53] LABS: CLARITY,URINE HAZY (CLEAR)
[2023-02-16] MEDS ORDERED: LIDOCAINE 2% URO-JET 5 ML SYRINGE UR STA (02:55)
[2023-02-16 03:07] LABS: BACTERIA,URINE Rare /HPF (None Seen); RBC,URINE 0-5 /HPF (0-5); SQUAMOUS EPITHELIAL CELL,UR FEW Squamous (<= Few)
--- NOTE | 2023-02-16 04:02 | ED Physician Documentation ---
History of Present Illness - Stated complaint Stated Complaint: MALE - Chief complaint Chief Complaint: General - History obtained from History obtained from: Patient - Additonal information Additional information: 77-year-old male with history of kidney stones presents with inability to urinate and dysuria x1 day. Patient states he is currently passing kidney stones. Also has a history of bladder cancer but is not currently undergoing chemotherapy. Denies fever, back pain, abdominal pain or nausea. PD PAST MEDICAL HISTORY - Past Medical History Other Past Medical History: bladder cancer, polio - Past Surgical History Past Surgical History: Yes Ortho: Other HEENT: Tonsil/Adenoidectomy - Present Medications Home Medications: Ambulatory Orders Medication Instructions Recorded Confirmed No Known Home Medications 02/16/23 02/16/23 - Allergies Allergies/Adverse Reactions: Allergies Allergy/AdvReac Type Severity Reaction Status Date / Time No Known Drug Allergies Allergy Verified 02/16/23 02:10 - Social History Does the pt smoke?: No Smoking Status: Former smoker Does the pt drink ETOH?: Yes ETOH Use: Beer Does the pt have substance abuse?: Yes Substance Use and Type: Marijuana, CBD oil / Products - Immunizations Immunizations are current?: Yes PD ED PE NORMAL - Vitals Vital signs reviewed: Yes - General General: Alert and oriented X 3, No acute distress, Well developed/nourished - HEENT HEENT: Atraumatic, PERRL, EOMI - Neck Neck: Supple, no meningeal sign - Abdomen Abdomen: Non tender, Non distended, Other (Suprapubic fullness) - Male Male : Other (Yellow ureteral calculus visible at the meatus) - Back Back: No CVA TTP Results - Vitals Vitals: Vital Signs - 24 hr 02/16/23 02:06 Temperature 36.4 C L Heart Rate 68 Respiratory 18 Rate Blood Pressure 189/79 H O2 Saturation 97 Oxygen O2 Source Room air - Labs Labs: Laboratory Tests 02/16/23 02:37 Urine Color YELLOW Urine Clarity HAZY Urine pH 7.5 Ur Specific [place] 1.010 Urine Protein NEGATIVE Urine Glucose (UA) NEGATIVE Urine Ketones NEGATIVE Urine Occult Blood SMALL H Urine Nitrite NEGATIVE Urine Bilirubin NEGATIVE Urine Urobilinogen 0.2 (NORMAL) Ur Leukocyte Esterase NEGATIVE Urine RBC 0-5 Urine WBC 4-5 Ur Squamous Epith Cells FEW Squamous Urine Bacteria Rare Urine Culture Comments NOT INDICATED Procedures - General procedure General procedure: Hemostats were used to gently extract a 3 mm ureteral calculus at the tip of the urethral meatus. Uro-Jet lidocaine gel used for analgesia. EBL 0. Patient tolerated well. PD Medical Decision Making - ED course ED course: 77-year-old man presents to the ED with urethral calculus causing urinary blockage. Calculus was manually removed with hemostats and patient immediately urinated 750 mL of urine as well as 2 other stones. Urinalysis positive only for blood. Patient expresses significant relief. Advised him to follow-up outpatient primary care routinely as well as urology. Return precautions given. Departure - Departure Disposition: Home, Self Care Clinical Impression: Urethral calculus Condition: Good Instructions: Kidney Stones Comments: You were seen in the emergency department for kidney stones blocking your urethra. I took one out with hemostats and the others came out after urination. Your urine test showed blood but no infection. Please follow-up with your primary care provider and return to the emergency department if you have any new or worsening symptoms or other concerns.
[2023-02-16 04:19] VITALS: BP 133/72; O2SAT 100
== END 2023-02-16 04:12 | disposition home or self-care (01) ==
LOC: ED 01:54
DX: N21.1 Calculus in urethra (principal); Z87.891 Personal history of nicotine dependence
CPT/HCPCS: 51701; 81001; 87086; 99283

== ENCOUNTER 2023-08-13 07:00 | Outpatient (CLI) | payer MEDICARE, OTHER ==
--- NOTE | 2023-08-13 14:40 | XRAY Report ---
PROCEDURE: Ribs w/PA Chest 3+V LT INDICATIONS: LEFT SIDED RIB PAIN TECHNIQUE: 3 views of the ribs were acquired, along with a single view chest. COMPARISON: None. FINDINGS: Surgical changes and devices: None. Bones and chest wall: No fractures or dislocations. No suspicious bony lesions. Overlying soft tis sues appear unremarkable. Lungs and pleura: No pleural effusions or pneumothorax. Lungs appear clear. Mediastinum: Mediastinal contours appear normal. Heart size is normal. IMPRESSION: No displaced rib fracture or pneumothorax. Reviewed by: Yuriy Radford MD on 08/13/2023 2:39 PM PST Approved by: Yuriy Radford MD on 08/13/2023 2:39 PM PST Station ID: [id number]
== END 2023-08-13 23:59 | disposition home or self-care (01) ==
LOC: DI.S 07:00
PROVIDERS: ATTEND Nurse Practitioner
DX: R07.81 Pleurodynia (principal)

== ENCOUNTER 2023-12-08 08:06 | Outpatient (CLI) | payer MEDICARE, OTHER | END 2023-12-08 08:07 | disposition home or self-care (01) | LOC: LAB.S 08:06 | PROVIDERS: ATTEND Urology | DX: C67.9 Malignant neoplasm of bladder, unspecified (principal); N21.0 Calculus in bladder | CPT/HCPCS: 87086 ==

== ENCOUNTER 2024-01-13 09:03 | Outpatient (CLI) | payer MEDICARE, OTHER ==
--- NOTE | 2024-01-13 20:32 | CT Report ---
PROCEDURE: Sinus INDICATIONS: HEADACHE TECHNIQUE: Noncontrast 3.0 mm axial images acquired from the frontal sinuses to the mid-sella, with coronal and sagittal reformats. For radiation dose reduction, the following was used: automated exposure control , adjustment of mA and/or kV according to patient size. COMPARISON: None. FINDINGS: Image quality: Excellent. Maxillary Sinuses: No bony remodeling or destruction. Sinuses are clear. Ethmoid Air Cells: No bony remodeling or destruction. Sinuses are clear. Sphenoid Sinuses: No bony remodeling or destruction. Sinuses are clear. Frontal Sinuses: No bony remodeling or destruction. Sinuses are clear. Ostiomeatal Complexes: Ostiomeatal complexes are patent. No Theodora cells. Miscellaneous: Visualized intra-orbital contents are normal. No gonzález bullosa. Mild rightward na lamont septal deviation with spurring. IMPRESSION: The paranasal sinuses are clear. Reviewed by: Yuriy Radford MD on 01/13/2024 8:31 PM PDT Approved by: Yuriy Radford MD on 01/13/2024 8:31 PM PDT Station ID: [id number]
== END 2024-01-13 09:04 | disposition home or self-care (01) ==
LOC: DI 09:03
PROVIDERS: ATTEND Registered Nurse
DX: R51.9 Headache, unspecified (principal)

== ENCOUNTER 2024-02-26 07:37 | Outpatient (CLI) | payer MEDICARE, OTHER ==
[2024-02-26 15:08] LABS: BASOPHILS # (AUTO) 0.1 10^3/uL (0.0-0.1); BASOPHILS % (AUTO) 0.7 %; EOSINOPHILS # (AUTO) 0.1 10^3/uL (0.0-0.7); EOSINOPHILS % (AUTO) 1.8 %; HGB - HEMOGLOBIN 11.7 g/dL (14.0-18.0); LYMPHOCYTES # (AUTO) 2.9 10^3/uL (1.5-3.5); LYMPHOCYTES % (AUTO) 43.2 %; MEAN CORPUSCULAR HEMOGLOBIN 32.1 pg (27.0-31.0); MEAN CORPUSCULAR HGB CONC 33.4 g/dL (32.0-36.0); MEAN CORPUSCULAR VOLUME 96.2 fL (80.0-94.0); MEAN PLATELET VOLUME 9.3 fL (7.4-11.4); MONOCYTES # (AUTO) 0.7 10^3/uL (0.0-1.0); MONOCYTES % (AUTO) 10.9 %; NEUTROPHILS # (AUTO) 2.9 10^3/uL (1.5-6.6); NEUTROPHILS % (AUTO) 43.1 %; PLT - PLATELET COUNT 279 10^3/uL (130-450); RED BLOOD COUNT 3.64 10^6/uL (4.70-6.10); RED CELL DISTRIBUTION WIDTH 14.6 % (12.0-15.0); WHITE BLOOD COUNT 6.7 x10^3/uL (4.8-10.8)
[2024-02-26 16:11] LABS: FERRITIN 81.2 ng/mL (23.9-336.2)
[2024-02-26 16:42] LABS: ALBUMIN 3.8 g/dL (3.2-5.5); ALBUMIN/GLOBULIN RATIO 1.4 (1.0-2.2); BILIRUBIN,TOTAL 0.8 mg/dL (0.2-1.0); CALCIUM 9.2 mg/dL (8.5-10.3); CREATININE 0.9 mg/dL (0.6-1.3); POTASSIUM 4.1 mmol/L (3.5-4.5); TOTAL PROTEIN 6.5 g/dL (6.4-8.9)
== END 2024-02-26 07:38 | disposition home or self-care (01) ==
LOC: LAB.S 07:37
PROVIDERS: ATTEND Internal Medicine
DX: D64.9 Anemia, unspecified (principal)
CPT/HCPCS: 36415; 80053; 82728; 83540; 84466; 85025